=== PATIENT | male | born 2000 | race African-American/Black ===

== ENCOUNTER 2023-04-08 18:57 | Emergency (ER) | payer SELFPAY ==
[~2023-04-08] VITALS: Ht 175.3 cm; Wt 67.0 kg
[2023-04-08 19:03] VITALS: BP 122/82; PULSE 78; RESP 18; TEMP 98.7; O2SAT 97
[2023-04-08] MEDS ORDERED: ONDANSETRON 4MG ODT PO ONE (19:15)
[2023-04-08] MEDS ORDERED: ONDANSETRON 4MG ODT PO NR (22:45)
== END 2023-04-08 23:58 | disposition home or self-care (01) ==
LOC: ER 18:57
DX: T40.711A Poisoning by cannabis, accidental (unintentional), initial encounter (principal); Y92.89 Other specified places as the place of occurrence of the external cause
CPT/HCPCS: 99283; Q0162